=== PATIENT | female | born 1955 | race Caucasian/White ===

== ENCOUNTER 2018-07-28 08:04 | Day surgery (SDC) | payer OTHER ==
[2018-07-28] MEDS ORDERED: MIDAZOLAM 1 MG/ML 2 ML INJ ×2 (09:57)
[2018-07-28] MEDS ORDERED: FENTAnyl 50 MCG/ML VIAL (09:57)
== END 2018-07-28 10:32 | disposition home or self-care (01) ==
LOC: GIL 08:04
DX: Z12.11 Encounter for screening for malignant neoplasm of colon (principal); K64.8 Other hemorrhoids
CPT/HCPCS: 45378